=== PATIENT | female | born 1950 ===

== ENCOUNTER 2018-03-24 05:03 | Emergency (ER) | payer OTHER, MEDICARE ==
[2018-03-24 05:14] VITALS: O2SAT 98
--- NOTE | 2018-03-24 07:13 | ED PDOC ---
HPI: Skin/Bite Injury Time Seen by Provider: 03/24/18 06:33 Chief Complaint (Nursing): Abnormal Skin Integrity Chief Complaint (Provider): Abnormal Skin Integrity History Per: Patient History/Exam Limitations: no limitations Onset/Duration Of Symptoms: Days (x1) Additional Complaint(s): Patient is a 67 y/o female with no significant PMHx who presents to the ED for evaluation of an itchy rash all over her body, onset yesterday. Patient claims she was having trouble sleeping this morning, thus, prompting her ED visit. Patient admits to a mild headache. Patient denies vomiting, dizziness, chest pain, and shortness of breath. Patient states she has been taking Benadryl and using topical Cortisone for relief. PCP: None Provided Past Medical History Reviewed: Historical Data, Nursing Documentation, Vital Signs Vital Signs: Last Vital Signs Temp 98.4 F 03/24/18 05:11 Pulse 96 H 03/24/18 05:11 Resp 16 03/24/18 05:11 BP 146/98 H 03/24/18 05:11 Pulse Ox 98 03/24/18 05:11 - Medical History PMH: No Chronic Diseases - Surgical History Surgical History: No Surg Hx - Family History Family History: States: No Known Family Hx - Home Medications Home Medications: Ambulatory Orders Medication Instructions Recorded DiphenhydrAMINE [Benadryl] 50 mg PO Q6 PRN #20 cap 03/24/18 Prednisone 50 mg PO DAILY #5 tablet 03/24/18 - Allergies Allergies/Adverse Reactions: Allergies Allergy/AdvReac Type Severity Reaction Status Date / Time No Known Allergies Allergy Verified 03/24/18 05:14 Review of Systems ROS Statement: Except As Marked, All Systems Reviewed And Found Negative Cardiovascular: Negative for: Chest Pain Respiratory: Negative for: Shortness of Breath Gastrointestinal: Negative for: Vomiting Skin: Positive for: Rash (itchy; all over body) Neurological: Positive for: Headache (mild). Negative for: Dizziness Physical Exam - Reviewed Nursing Documentation Reviewed: Yes Vital Signs Reviewed: Yes - Physical Exam Appears: Positive for: Non-toxic, No Acute Distress Head Exam: Positive for: ATRAUMATIC, NORMAL INSPECTION, NORMOCEPHALIC Skin: Positive for: Rash (diffuse erythema to torso, back, and extremities) Eye Exam: Positive for: EOMI, Normal appearance, PERRL Neck: Positive for: Normal, Painless ROM, Supple Cardiovascular/Chest: Positive for: Regular Rate, Rhythm. Negative for: Murmur Respiratory: Positive for: Normal Breath Sounds. Negative for: Respiratory Distress Back: Positive for: Normal Inspection. Negative for: L CVA Tenderness, R CVA Tenderness, Vertebral Tenderness Extremity: Positive for: Normal ROM. Negative for: Pedal Edema, Deformity Neurologic/Psych: Positive for: Alert, Oriented. Negative for: Motor/Sensory Deficits - ECG O2 Sat by Pulse Oximetry: 98 (RA) Pulse Ox Interpretation: Normal Medical Decision Making Medical Decision Making: Time: 632 Impression: Diffuse urticaria rash to torso, back, and extremities. No infectious suspicion. Plan: Benadryl 50 mg PO Tylenol 650 mg PO predniSONE 60 mg PO Time: 0755 Rash and itching resolved. On reevaluation urticaria completely gone. Given prescription for predniSONE and Benadryl. Followup with PMD. Return parameters discussed. Scribe Attestation: Documented by Orlando Pitts, acting as a scribe for Anni Rodriguez MD. Provider Scribe Attestation: All medical record entries made by the Scribe were at my direction and personally dictated by me. I have reviewed the chart and agree that the record accurately reflects my personal performance of the history, physical exam, medical decision making, and the department course for this patient. I have also personally directed, reviewed, and agree with the discharge instructions and disposition. Disposition - Clinical Impression Clinical Impression: Urticaria - Patient ED Disposition Is Patient to be Admitted: No Counseled Patient/Family Regarding: Studies Performed, Diagnosis, Need For Followup, Rx Given - Disposition Disposition: Routine/Home Disposition Time: 07:55 Condition: STABLE Additional Instructions: Take Prednisone daily for the next 4 days. Take Benadryl every 6 hours if you need it for a rash. Follow up with primary medical doctor in 2 to 5 days. Return to the emergency department if you develop wheezing, trouble breathing, chest pain, or other new symptoms. Prescriptions: DiphenhydrAMINE [Benadryl] 50 mg PO Q6 PRN #20 cap PRN Reason: Itching / Pruritus Prednisone 50 mg PO DAILY #5 tablet Instructions: Jilles (DC) Forms: [employer] (Polish), [employer] (Niuean) Print Language: [id number]
[2018-03-24 08:09] VITALS: BP 142/88; PULSE 84; RESP 18; TEMP 98.6
== END 2018-03-24 07:55 | disposition home or self-care (01) ==
LOC: H.ER 05:03
DX: L50.9 Urticaria, unspecified (principal)